=== PATIENT | female | born 1975 | race African-American/Black ===

== ENCOUNTER 2019-10-12 00:14 | Emergency (ER) | payer MEDICAID ==
[~2019-10-12] VITALS: Ht 172.7 cm; Wt 62.7 kg
[2019-10-12 00:16] VITALS: Ht 172.7 cm; Wt 62.7 kg
[2019-10-12 00:58] VITALS: BP 135/89
== END 2019-10-12 00:58 | disposition home or self-care (01) ==
LOC: D.ER 00:14
DX: T23.202A Burn of second degree of left hand, unspecified site, initial encounter (principal); X10.1XXA Contact with hot food, initial encounter; Y93.9 Activity, unspecified; Y92.9 Unspecified place or not applicable